=== PATIENT | female | born 2000 | race Caucasian/White ===

== ENCOUNTER 2024-03-27 16:57 | Emergency (ER) | payer MEDICAID ==
[~2024-03-27] VITALS: Ht 152.4 cm; Wt 83.0 kg
[2024-03-27 17:11] VITALS: O2SAT 100
[2024-03-27] MEDS ORDERED: TRAMADOL 50MG TABLET PO ONE (17:45)
[2024-03-27] MEDS: TRAMADOL 50MG TABLET PO NR (18:16)
[2024-03-27] MEDS: IBUPROFEN 400MG TABLET PO ONE (18:16)
[2024-03-27] MEDS ORDERED: IBUP-2029 MT (18:59)
[2024-03-27 19:07] VITALS: BP 111/79; PULSE 86; RESP 18; TEMP 98
== END 2024-03-27 19:22 | disposition home or self-care (01) ==
LOC: ER 16:57
DX: R51.9 Headache, unspecified (principal)
CPT/HCPCS: 99283